=== PATIENT | male | born 1970 | race African-American/Black ===

== ENCOUNTER 2021-01-28 16:20 | Inpatient (IN) | payer OTHER ==
[2021-01-28 19:41] VITALS: BMI 23.2
[2021-01-28] MEDS ORDERED: MAGNESIUM CITRATE 300 ML BOTTLE PO PRN (23:43)
[2021-01-28] MEDS ORDERED: NICOTINE 10 MG CARTRIDGE (INHALER) IH PRN (23:43)
[2021-01-28] MEDS ORDERED: BISMUTH SUBSALICYLATE 524 MG/30 ML PO PRN (23:43)
[2021-01-28] MEDS ORDERED: MENTHOL/PHENOL 1 EACH UD MM PRN (23:43)
[2021-01-28] MEDS ORDERED: ACETAMINOPHEN 325 MG TABLET (FP) PO PRN ×2 (23:43)
[2021-01-28] MEDS ORDERED: ONDANSETRON *ODT* 4 MG TABLET SL PRN (23:43)
[2021-01-28] MEDS ORDERED: MAGNESIUM HYDROX 2400MG/30ML ORAL SUSPENSION 30 ML CUP PO PRN (23:43)
[2021-01-28] MEDS ORDERED: MAG HYDROX/AL HYDROX/SIMETH 30 ML UNIT-DOSE CUP PO PRN (23:43)
[2021-01-29] MEDS: diazePAM 5 MG TABLET PO PRN (00:36)
[2021-01-29] MEDS: METHOCARBAMOL 500 MG TABLET PO PRN (00:36)
[2021-01-29] MEDS: diazePAM 5 MG TABLET PO SCH ×5 (00:40→22:39)
[2021-01-29] MEDS ORDERED: cloNIDine HCL 0.1 MG TABLET PO ONE (01:30)
[2021-01-29] MEDS: hydrOXYzine PAMOATE 25 MG CAPSULE (FP) PO SCH ×5 (05:41→22:40)
[2021-01-29] MEDS: metFORMIN HCL 500 MG TABLET (FP) PO SCH (07:23)
[2021-01-29] MEDS: PRENATAL VITAMINS W/ FOLIC ACID TABLET (FP) PO SCH (10:35)
[2021-01-29] MEDS: amLODIPine BESYLATE 10 MG TABLET (FP) PO SCH (10:35)
[2021-01-29 11:03] LABS: HEMATOCRIT 35.7 % (35.4-49); HEMOGLOBIN 11.9 GM/dL (11.7-16.9); MCHC 33.3 g/dl (32.0-35.9); MEAN PLT VOLUME 9.2 fl (7.5-11.1); PLATELET COUNT 98 10^3/uL (134-434); RBC 3.61 M/mm3 (4.00-5.60); RDW 15.1 % (11.9-15.9); WHITE BLOOD COUNT 5.5 K/mm3 (4.0-10.0)
[2021-01-29 11:20] LABS: ALBUMIN 3.5 g/dl (3.4-5.0)
[2021-01-29 11:21] LABS: BILIRUBIN,TOTAL 0.8 mg/dL (0.2-1); CALCIUM 8.7 mg/dL (8.5-10.1)
[2021-01-29 11:22] LABS: BLOOD UREA NITROGEN 9.2 mg/dL (7-18); TOT PROT 6.9 g/dl (6.4-8.2)
[2021-01-29 11:23] LABS: CREATININE 0.8 mg/dL (0.55-1.3)
[2021-01-29] MEDS: MELATONIN 5 MG TABLETS PO SCH (22:40)
[2021-01-29] MEDS: traZODone HCL 50 MG TABLET (FP) PO SCH (22:40)
[2021-01-29] MEDS: THIAMINE HCL 100 MG TABLET (FP) PO SCH (22:40)
[2021-01-30] MEDS: diazePAM 5 MG TABLET PO SCH ×3 (06:13→22:25)
[2021-01-30] MEDS: hydrOXYzine PAMOATE 25 MG CAPSULE (FP) PO SCH ×5 (06:13→22:25)
[2021-01-30] MEDS: metFORMIN HCL 500 MG TABLET (FP) PO SCH (06:35)
[2021-01-30] MEDS: PRENATAL VITAMINS W/ FOLIC ACID TABLET (FP) PO SCH (10:12)
[2021-01-30] MEDS: amLODIPine BESYLATE 10 MG TABLET (FP) PO SCH (10:12)
[2021-01-30] MEDS: METHOCARBAMOL 500 MG TABLET PO PRN (10:13)
[2021-01-30] MEDS: IBUPROFEN 400 MG TABLET (FP) PO PRN ×2 (14:00→22:32)
[2021-01-30] MEDS: traZODone HCL 50 MG TABLET (FP) PO SCH (22:25)
[2021-01-30] MEDS: MELATONIN 5 MG TABLETS PO SCH (22:25)
[2021-01-30] MEDS: THIAMINE HCL 100 MG TABLET (FP) PO SCH (22:25)
[2021-01-31] MEDS: hydrOXYzine PAMOATE 25 MG CAPSULE (FP) PO SCH ×5 (05:56→22:20)
[2021-01-31] MEDS: diazePAM 5 MG TABLET PO SCH ×2 (06:07→17:57)
[2021-01-31] MEDS: metFORMIN HCL 500 MG TABLET (FP) PO SCH (06:29)
[2021-01-31] MEDS: PRENATAL VITAMINS W/ FOLIC ACID TABLET (FP) PO SCH (10:31)
[2021-01-31] MEDS: amLODIPine BESYLATE 10 MG TABLET (FP) PO SCH (10:31)
[2021-01-31] MEDS: diazePAM 5 MG TABLET PO PRN (10:32)
[2021-01-31] MEDS: MELATONIN 5 MG TABLETS PO SCH (22:20)
[2021-01-31] MEDS: THIAMINE HCL 100 MG TABLET (FP) PO SCH (22:20)
[2021-01-31] MEDS: traZODone HCL 50 MG TABLET (FP) PO SCH (22:20)
[2021-02-01] MEDS ORDERED: diazePAM 5 MG TABLET PO ONE (06:00)
[2021-02-01] MEDS: hydrOXYzine PAMOATE 25 MG CAPSULE (FP) PO SCH ×2 (06:16→10:43)
[2021-02-01] MEDS: metFORMIN HCL 500 MG TABLET (FP) PO SCH (06:30)
[2021-02-01] MEDS: amLODIPine BESYLATE 10 MG TABLET (FP) PO SCH (10:43)
[2021-02-01] MEDS: PRENATAL VITAMINS W/ FOLIC ACID TABLET (FP) PO SCH (10:43)
[2021-02-01 14:13] VITALS: BP 129/95; PULSE 112; TEMP 97.7
== END 2021-02-01 13:36 | disposition other institution (70) | DRG 897 ==
LOC: YASAS 16:20 → Y3N 22:21
PROVIDERS: ADMIT Allergy & Immunology; ATTEND Allergy & Immunology
PROC: HZ2ZZZZ Detoxification Services for Substance Abuse Treatment (ICD-10-PCS; principal; 2021-01-28)
DX: F10.230 Alcohol dependence with withdrawal, uncomplicated (principal); F10.24 Alcohol dependence with alcohol-induced mood disorder; F43.20 Adjustment disorder, unspecified; I10 Essential (primary) hypertension; G47.00 Insomnia, unspecified; E11.9 Type 2 diabetes mellitus without complications; Z79.84 Long term (current) use of oral hypoglycemic drugs; M54.5 Low back pain; G89.29 Other chronic pain; G40.909 Epilepsy, unspecified, not intractable, without status epilepticus
CPT/HCPCS: 36415; 80053; 82962; 85027; 86780; 93005; 93010; C9803; J0735; U0003; U0005

== ENCOUNTER 2021-02-01 14:02 | Inpatient (IN) | payer OTHER ==
[2021-02-01] MEDS ORDERED: ACETAMINOPHEN 325 MG TABLET (FP) PO PRN (14:25)
[2021-02-01] MEDS ORDERED: MAGNESIUM HYDROX 2400MG/30ML ORAL SUSPENSION 30 ML CUP PO PRN (14:25)
[2021-02-01] MEDS ORDERED: MAGNESIUM CITRATE 300 ML BOTTLE PO PRN (14:25)
[2021-02-01] MEDS ORDERED: MAG HYDROX/AL HYDROX/SIMETH 30 ML UNIT-DOSE CUP PO PRN (14:25)
[2021-02-01] MEDS ORDERED: MENTHOL/PHENOL 1 EACH UD MM PRN (14:25)
[2021-02-01] MEDS ORDERED: NICOTINE 10 MG CARTRIDGE (INHALER) IH PRN (14:25)
[2021-02-01] MEDS ORDERED: IBUPROFEN 400 MG TABLET (FP) PO PRN (14:25)
[2021-02-01] MEDS: METHOCARBAMOL 500 MG TABLET PO PRN (14:46)
[2021-02-01] MEDS: MELATONIN 5 MG TABLETS PO SCH (21:10)
[2021-02-01] MEDS: traZODone HCL 50 MG TABLET (FP) PO SCH (21:10)
[2021-02-01] MEDS: THIAMINE HCL 100 MG TABLET (FP) PO SCH (21:10)
[2021-02-02] MEDS: metFORMIN HCL 500 MG TABLET (FP) PO SCH (09:03)
[2021-02-02] MEDS: PRENATAL VITAMINS W/ FOLIC ACID TABLET (FP) PO SCH (09:03)
[2021-02-02] MEDS: METHOCARBAMOL 500 MG TABLET PO PRN ×2 (09:03→21:30)
[2021-02-02] MEDS: amLODIPine BESYLATE 10 MG TABLET (FP) PO SCH (09:03)
[2021-02-02] MEDS: MELATONIN 5 MG TABLETS PO SCH (21:30)
[2021-02-02] MEDS: THIAMINE HCL 100 MG TABLET (FP) PO SCH (21:30)
[2021-02-02] MEDS: traZODone HCL 50 MG TABLET (FP) PO SCH (21:30)
[2021-02-03] MEDS: amLODIPine BESYLATE 10 MG TABLET (FP) PO SCH (10:08)
[2021-02-03] MEDS: metFORMIN HCL 500 MG TABLET (FP) PO SCH (10:08)
[2021-02-03] MEDS: PRENATAL VITAMINS W/ FOLIC ACID TABLET (FP) PO SCH (10:09)
[2021-02-03] MEDS: LOPERAMIDE HCL 2 MG CAPSULE PO PRN (10:10)
[2021-02-03] MEDS ORDERED: PT OWN MED DRAWER 7, Y5N ONE (15:20)
[2021-02-03] MEDS: traZODone HCL 50 MG TABLET (FP) PO SCH (21:03)
[2021-02-03] MEDS: MELATONIN 5 MG TABLETS PO SCH (21:03)
[2021-02-03] MEDS: THIAMINE HCL 100 MG TABLET (FP) PO SCH (21:03)
[2021-02-04] MEDS: LOPERAMIDE HCL 2 MG CAPSULE PO PRN (06:55)
[2021-02-04] MEDS: amLODIPine BESYLATE 10 MG TABLET (FP) PO SCH (10:34)
[2021-02-04] MEDS: PRENATAL VITAMINS W/ FOLIC ACID TABLET (FP) PO SCH (10:34)
[2021-02-04] MEDS: metFORMIN HCL 500 MG TABLET (FP) PO SCH (10:34)
[2021-02-04] MEDS: THIAMINE HCL 100 MG TABLET (FP) PO SCH (21:34)
[2021-02-04] MEDS: traZODone HCL 50 MG TABLET (FP) PO SCH (21:34)
[2021-02-04] MEDS: MELATONIN 5 MG TABLETS PO SCH (21:34)
[2021-02-05] MEDS: metFORMIN HCL 500 MG TABLET (FP) PO SCH (08:01)
[2021-02-05] MEDS: PRENATAL VITAMINS W/ FOLIC ACID TABLET (FP) PO SCH (10:23)
[2021-02-05] MEDS: amLODIPine BESYLATE 10 MG TABLET (FP) PO SCH (10:23)
[2021-02-05] MEDS: traZODone HCL 50 MG TABLET (FP) PO SCH (21:05)
[2021-02-05] MEDS: MELATONIN 5 MG TABLETS PO SCH (21:05)
[2021-02-05] MEDS: THIAMINE HCL 100 MG TABLET (FP) PO SCH (21:06)
[2021-02-05] MEDS: LOPERAMIDE HCL 2 MG CAPSULE PO PRN (21:08)
[2021-02-06] MEDS: metFORMIN HCL 500 MG TABLET (FP) PO SCH (08:10)
[2021-02-06] MEDS: PRENATAL VITAMINS W/ FOLIC ACID TABLET (FP) PO SCH (10:55)
[2021-02-06] MEDS: amLODIPine BESYLATE 10 MG TABLET (FP) PO SCH (10:56)
[2021-02-06] MEDS: traZODone HCL 50 MG TABLET (FP) PO SCH (21:20)
[2021-02-06] MEDS: MELATONIN 5 MG TABLETS PO SCH (21:22)
[2021-02-06] MEDS: THIAMINE HCL 100 MG TABLET (FP) PO SCH (21:22)
[2021-02-07] MEDS: metFORMIN HCL 500 MG TABLET (FP) PO SCH (08:03)
[2021-02-07] MEDS: PRENATAL VITAMINS W/ FOLIC ACID TABLET (FP) PO SCH (10:31)
[2021-02-07] MEDS: amLODIPine BESYLATE 10 MG TABLET (FP) PO SCH (10:31)
[2021-02-07] MEDS: traZODone HCL 100 MG TABLET (FP) PO SCH (21:06)
[2021-02-07] MEDS: THIAMINE HCL 100 MG TABLET (FP) PO SCH (21:06)
[2021-02-07] MEDS: MELATONIN 5 MG TABLETS PO SCH (21:06)
[2021-02-08] MEDS: metFORMIN HCL 500 MG TABLET (FP) PO SCH (06:30)
[2021-02-08] MEDS: amLODIPine BESYLATE 10 MG TABLET (FP) PO SCH (09:53)
[2021-02-08] MEDS: PRENATAL VITAMINS W/ FOLIC ACID TABLET (FP) PO SCH (09:53)
[2021-02-08] MEDS: traZODone HCL 100 MG TABLET (FP) PO SCH (21:46)
[2021-02-08] MEDS: THIAMINE HCL 100 MG TABLET (FP) PO SCH (21:46)
[2021-02-08] MEDS: MELATONIN 5 MG TABLETS PO SCH (21:46)
[2021-02-09] MEDS: metFORMIN HCL 500 MG TABLET (FP) PO SCH (06:37)
[2021-02-09] MEDS: amLODIPine BESYLATE 10 MG TABLET (FP) PO SCH (10:29)
[2021-02-09] MEDS: PRENATAL VITAMINS W/ FOLIC ACID TABLET (FP) PO SCH (10:29)
[2021-02-09] MEDS: MELATONIN 5 MG TABLETS PO SCH (21:02)
[2021-02-09] MEDS: traZODone HCL 100 MG TABLET (FP) PO SCH (21:02)
[2021-02-09] MEDS: THIAMINE HCL 100 MG TABLET (FP) PO SCH (21:02)
[2021-02-10] MEDS: metFORMIN HCL 500 MG TABLET (FP) PO SCH ×2 (07:48→10:35)
[2021-02-10] MEDS: amLODIPine BESYLATE 10 MG TABLET (FP) PO SCH (10:35)
[2021-02-10] MEDS: PRENATAL VITAMINS W/ FOLIC ACID TABLET (FP) PO SCH (10:35)
[2021-02-10] MEDS: traZODone HCL 100 MG TABLET (FP) PO SCH (21:33)
[2021-02-10] MEDS: THIAMINE HCL 100 MG TABLET (FP) PO SCH (21:33)
[2021-02-10] MEDS: MELATONIN 5 MG TABLETS PO SCH (21:33)
[2021-02-11] MEDS: metFORMIN HCL 500 MG TABLET (FP) PO SCH (07:59)
[2021-02-11] MEDS: amLODIPine BESYLATE 10 MG TABLET (FP) PO SCH (09:53)
[2021-02-11] MEDS: PRENATAL VITAMINS W/ FOLIC ACID TABLET (FP) PO SCH (09:53)
[2021-02-11] MEDS: traZODone HCL 100 MG TABLET (FP) PO SCH (21:01)
[2021-02-11] MEDS: MELATONIN 5 MG TABLETS PO SCH (21:01)
[2021-02-11] MEDS: THIAMINE HCL 100 MG TABLET (FP) PO SCH (21:01)
[2021-02-12] MEDS: metFORMIN HCL 500 MG TABLET (FP) PO SCH (07:56)
[2021-02-12] MEDS: amLODIPine BESYLATE 10 MG TABLET (FP) PO SCH (10:44)
[2021-02-12] MEDS: PRENATAL VITAMINS W/ FOLIC ACID TABLET (FP) PO SCH (10:45)
[2021-02-12] MEDS: THIAMINE HCL 100 MG TABLET (FP) PO SCH (21:52)
[2021-02-12] MEDS: traZODone HCL 100 MG TABLET (FP) PO SCH (21:52)
[2021-02-12] MEDS: MELATONIN 5 MG TABLETS PO SCH (21:52)
[2021-02-13] MEDS: metFORMIN HCL 500 MG TABLET (FP) PO SCH (07:43)
[2021-02-13] MEDS: amLODIPine BESYLATE 10 MG TABLET (FP) PO SCH (09:41)
[2021-02-13] MEDS: PRENATAL VITAMINS W/ FOLIC ACID TABLET (FP) PO SCH (09:41)
[2021-02-13] MEDS: MELATONIN 5 MG TABLETS PO SCH (21:05)
[2021-02-13] MEDS: traZODone HCL 100 MG TABLET (FP) PO SCH (21:05)
[2021-02-13] MEDS: THIAMINE HCL 100 MG TABLET (FP) PO SCH (21:06)
[2021-02-13] MEDS: levETIRAcetam 500 MG TABLET (FP) PO SCH (21:06)
[2021-02-13] MEDS ORDERED: PT OWN MED DRAWER 7, Y5N ONE (21:32)
[2021-02-13] MEDS: LATANOPROST 0.005% OPHTH SOLN 2.5ML BOTTLE OU SCH (22:09)
[2021-02-14] MEDS: metFORMIN HCL 500 MG TABLET (FP) PO SCH (06:18)
[2021-02-14] MEDS: amLODIPine BESYLATE 10 MG TABLET (FP) PO SCH (10:47)
[2021-02-14] MEDS: PRENATAL VITAMINS W/ FOLIC ACID TABLET (FP) PO SCH (10:48)
[2021-02-14] MEDS: levETIRAcetam 500 MG TABLET (FP) PO SCH ×2 (10:48→21:37)
[2021-02-14] MEDS: FOLIC ACID 1 MG TABLET (FP) PO SCH (10:48)
[2021-02-14] MEDS: traZODone HCL 100 MG TABLET (FP) PO SCH (21:37)
[2021-02-14] MEDS: THIAMINE HCL 100 MG TABLET (FP) PO SCH (21:37)
[2021-02-14] MEDS: MELATONIN 5 MG TABLETS PO SCH (21:37)
[2021-02-14] MEDS: LATANOPROST 0.005% OPHTH SOLN 2.5ML BOTTLE OU SCH (21:38)
[2021-02-15] MEDS: metFORMIN HCL 500 MG TABLET (FP) PO SCH (06:07)
[2021-02-15] MEDS: levETIRAcetam 500 MG TABLET (FP) PO SCH ×2 (09:59→21:04)
[2021-02-15] MEDS: PRENATAL VITAMINS W/ FOLIC ACID TABLET (FP) PO SCH (09:59)
[2021-02-15] MEDS: FOLIC ACID 1 MG TABLET (FP) PO SCH (09:59)
[2021-02-15] MEDS: amLODIPine BESYLATE 10 MG TABLET (FP) PO SCH (09:59)
[2021-02-15] MEDS: MELATONIN 5 MG TABLETS PO SCH (21:03)
[2021-02-15] MEDS: THIAMINE HCL 100 MG TABLET (FP) PO SCH (21:03)
[2021-02-15] MEDS: LATANOPROST 0.005% OPHTH SOLN 2.5ML BOTTLE OU SCH (21:04)
[2021-02-15] MEDS: traZODone HCL 100 MG TABLET (FP) PO SCH (21:04)
[2021-02-16] MEDS: metFORMIN HCL 500 MG TABLET (FP) PO SCH (07:08)
[2021-02-16] MEDS: PRENATAL VITAMINS W/ FOLIC ACID TABLET (FP) PO SCH (10:35)
[2021-02-16] MEDS: levETIRAcetam 500 MG TABLET (FP) PO SCH ×2 (10:35→21:34)
[2021-02-16] MEDS: FOLIC ACID 1 MG TABLET (FP) PO SCH (10:35)
[2021-02-16] MEDS: amLODIPine BESYLATE 10 MG TABLET (FP) PO SCH (10:35)
[2021-02-16] MEDS: MELATONIN 5 MG TABLETS PO SCH (21:34)
[2021-02-16] MEDS: traZODone HCL 100 MG TABLET (FP) PO SCH (21:34)
[2021-02-16] MEDS: THIAMINE HCL 100 MG TABLET (FP) PO SCH (21:34)
[2021-02-16] MEDS: LATANOPROST 0.005% OPHTH SOLN 2.5ML BOTTLE OU SCH (21:35)
[2021-02-17] MEDS: metFORMIN HCL 500 MG TABLET (FP) PO SCH (06:11)
[2021-02-17] MEDS: levETIRAcetam 500 MG TABLET (FP) PO SCH ×2 (10:12→21:03)
[2021-02-17] MEDS: PRENATAL VITAMINS W/ FOLIC ACID TABLET (FP) PO SCH (10:12)
[2021-02-17] MEDS: FOLIC ACID 1 MG TABLET (FP) PO SCH (10:12)
[2021-02-17] MEDS: amLODIPine BESYLATE 10 MG TABLET (FP) PO SCH (10:12)
[2021-02-17] MEDS: THIAMINE HCL 100 MG TABLET (FP) PO SCH (21:03)
[2021-02-17] MEDS: LATANOPROST 0.005% OPHTH SOLN 2.5ML BOTTLE OU SCH (21:03)
[2021-02-17] MEDS: traZODone HCL 100 MG TABLET (FP) PO SCH (21:03)
[2021-02-17] MEDS: MELATONIN 5 MG TABLETS PO SCH (21:03)
[2021-02-18] MEDS: metFORMIN HCL 500 MG TABLET (FP) PO SCH (06:02)
[2021-02-18] MEDS: FOLIC ACID 1 MG TABLET (FP) PO SCH (10:20)
[2021-02-18] MEDS: PRENATAL VITAMINS W/ FOLIC ACID TABLET (FP) PO SCH (10:20)
[2021-02-18] MEDS: levETIRAcetam 500 MG TABLET (FP) PO SCH ×2 (10:20→21:45)
[2021-02-18] MEDS: amLODIPine BESYLATE 10 MG TABLET (FP) PO SCH (10:20)
[2021-02-18] MEDS: traZODone HCL 100 MG TABLET (FP) PO SCH (21:45)
[2021-02-18] MEDS: MELATONIN 5 MG TABLETS PO SCH (21:45)
[2021-02-18] MEDS: THIAMINE HCL 100 MG TABLET (FP) PO SCH (21:45)
[2021-02-18] MEDS: LATANOPROST 0.005% OPHTH SOLN 2.5ML BOTTLE OU SCH (21:46)
[2021-02-19] MEDS: metFORMIN HCL 500 MG TABLET (FP) PO SCH (06:14)
[2021-02-19 07:00] VITALS: TEMP 96.8
[2021-02-19] MEDS: PRENATAL VITAMINS W/ FOLIC ACID TABLET (FP) PO SCH (09:58)
[2021-02-19] MEDS: levETIRAcetam 500 MG TABLET (FP) PO SCH ×2 (09:58→21:00)
[2021-02-19] MEDS: amLODIPine BESYLATE 10 MG TABLET (FP) PO SCH (09:59)
[2021-02-19] MEDS: FOLIC ACID 1 MG TABLET (FP) PO SCH (09:59)
[2021-02-19] MEDS: MELATONIN 5 MG TABLETS PO SCH (21:00)
[2021-02-19] MEDS: traZODone HCL 100 MG TABLET (FP) PO SCH (21:00)
[2021-02-19] MEDS: THIAMINE HCL 100 MG TABLET (FP) PO SCH (21:00)
[2021-02-19] MEDS: LATANOPROST 0.005% OPHTH SOLN 2.5ML BOTTLE OU SCH (21:00)
[2021-02-20] MEDS: metFORMIN HCL 500 MG TABLET (FP) PO SCH (06:09)
[2021-02-20 06:59] VITALS: BP 112/78; PULSE 92
[2021-02-20] MEDS: PRENATAL VITAMINS W/ FOLIC ACID TABLET (FP) PO SCH (09:33)
[2021-02-20] MEDS: FOLIC ACID 1 MG TABLET (FP) PO SCH (09:33)
[2021-02-20] MEDS: levETIRAcetam 500 MG TABLET (FP) PO SCH (09:33)
[2021-02-20] MEDS: amLODIPine BESYLATE 10 MG TABLET (FP) PO SCH (09:33)
== END 2021-02-20 09:48 | disposition home or self-care (01) | DRG 895 ==
LOC: YASAS 14:02 → Y3W 14:03
PROVIDERS: ADMIT Allergy & Immunology; ATTEND Allergy & Immunology
PROC: HZ42ZZZ Group Counseling for Substance Abuse Treatment, Cognitive-Behavioral (ICD-10-PCS; principal; 2021-02-01)
DX: F10.20 Alcohol dependence, uncomplicated (principal); F10.24 Alcohol dependence with alcohol-induced mood disorder; F43.20 Adjustment disorder, unspecified; F32.9 Major depressive disorder, single episode, unspecified; E78.5 Hyperlipidemia, unspecified; E11.9 Type 2 diabetes mellitus without complications; Z79.84 Long term (current) use of oral hypoglycemic drugs; I10 Essential (primary) hypertension; G40.909 Epilepsy, unspecified, not intractable, without status epilepticus; K21.9 Gastro-esophageal reflux disease without esophagitis; M54.5 Low back pain; G89.29 Other chronic pain; G47.00 Insomnia, unspecified; R26.2 Difficulty in walking, not elsewhere classified; Z99.89 Dependence on other enabling machines and devices; Z59.0 Homelessness
CPT/HCPCS: 36415; 80177; 82140; 82962